=== PATIENT | female | born 1985 | race Caucasian/White ===

== ENCOUNTER → 2024-05-13 | Outpatient (CLI) | payer OTHER ==
--- NOTE | 2024-05-13 09:28 | MR ---
INDICATION: Patient age:Female; 39 years old; Reason for study: N63.22 UNSPECIFIED LUMP IN THE LEFT BREAST, UPPER; [facility]. COMPARISON: None. TECHNIQUE: Multi planar, multi sequence imaging was performed through the brain. The patient was then given 8 cc of Gadavist intravenously and multi planar, T1 fat-saturation images were obtained. FINDINGS: The quach-white junctions, ventricular system, basal cisterns appear unremarkable. Diffusion-weighted imaging shows no evidence of restricted diffusion to suggest acute/subacute infarct. Intracranial art erial flow voids are maintained. Midline structures show no abnormality. There are approximately 3 ti ny bilateral frontal lobe T2/FLAIR hyperintense subcortical white matter 2 mm foci. The susceptibilit y weighted images do not reveal any evidence for micro-hemorrhage. After administration of gadolinium , no abnormal enhancement is seen. The bone marrow signal is within normal limits. The paranasal sinuses and globes are unremarkable. IMPRESSION: 1. No evidence of intracranial mass, acute/subacute infarct, or abnormal enhancement. 2. No definitive evidence for metastatic disease. 3. Few nonspecific white matter foci, likely related to small vessel ischemic disease versus other et iologies such as migraines or demyelination. No enhancement.
== END | disposition home or self-care (01) ==
LOC: RADMRIMAIN 07:04
PROVIDERS: ATTEND Surgery
DX: N63.22 Unspecified lump in the left breast, upper inner quadrant (principal)
CPT/HCPCS: 70553

== ENCOUNTER → 2024-05-14 | Outpatient (CLI) | payer OTHER ==
--- NOTE | 2024-05-14 13:59 | PE ---
EXAMINATION TYPE: PET CT fusion skull to thigh DATE OF EXAM: 05/14/2024 COMPARISON: None Prior PET/CT: None at this location HISTORY: Breast cancer TECHNIQUE: Following the intravenous administration of 11.22 mCi of F-18 FDG, whole body images are performed from the skull base to the midthigh. Images are reviewed on the computer in the coronal, a xial, and sagittal planes. Reconstructed rotating images are created on independent workstation and reviewed on the computer. A localization and attenuation correction CT is performed in conjunction with the PET scan. DLP: 634.77 mGycm SCAN: Initial Blood glucose: 97 mg/dL Average Mediastinum SUV: 2.5 Average Liver SUV: 3.21 FINDINGS: NECK: No suspicious uptake THORAX: There is focal uptake within the medial left breast, may be the patient's primary. No additi onal suspicious uptake within the breasts. No suspicious axillary uptake. No suspicious soft tissue uptake within the thorax. ABDOMEN: No suspicious uptake PELVIS: No suspicious uptake OSSEOUS STRUCTURES: There is some focal uptake within the mid sternum. Image 94, SUV 8.96. Second are a slightly more inferior, image 99, SUV 12.15. LOCALIZATION CT: 2.1 cm nodule left medial breast. Some cortical erosion of sternum noted. COMPARISON: None IMPRESSION: 1. Focal uptake within the medial left breast. 2. Two adjacent nearly contiguous areas of uptake within the sternum suspicious for metastasis. 3. No additional distant metastasis identified.
== END | disposition home or self-care (01) ==
LOC: RADPETMAIN 11:02
PROVIDERS: ATTEND Surgery
DX: C50.919 Malignant neoplasm of unspecified site of unspecified female breast
CPT/HCPCS: 78815

== ENCOUNTER → 2024-05-15 | Outpatient (CLI) | payer OTHER ==
--- NOTE | 2024-05-20 08:33 | BMR ---
EXAM DATE: 05/15/2024 EXAM DESCRIPTION: MRI-Breast Bilat (W/WO Contrast) INDICATION: Recently diagnosed carcinoma presenting for staging COMPARISON: Comparison is made with relevant prior imaging in PACS. CONTRAST: 8.0 cc of Gadavist TECHNIQUE: Multiplanar MRI imaging of both breasts was performed with a dedicated breast coil, before and after intravenous administration of gadolinium contrast, using the standard breast mass protocol. Computer-aided detection was used to aid in interpretation. Study was performed at [facility] with Radiologic interpretation by [facility]. FINDINGS: General breast composition: The breast is heterogeneously dense Background parenchymal enhancement: Mild FINDINGS: Right Breast: Review of the dynamic contrast-enhanced series shows focal non mass enhancement in the upper central breast at posterior depth measuring 1.2 x 1.0 x 1.0 cm (503:542, 701:176). No lymphadenopathy. Left Breast: Review of the dynamic contrast-enhanced series shows irregular enhancing mass in the upper inner breast at mid depth measuring 2.5 x 2.2 x 2.6 cm (504:387, 701:70). There are small surrounding satellite masses all within 1 cm of the main mass, largest measuring 5 mm medial to the index mass (501:381, 701:69). No lymphadenopathy. Miscellaneous findings:Abnormal enhancement involving the sternum. IMPRESSION: Right Breast: BI-RADS Category3- Probably benign 1. Probably benign focal non mass enhancement in the upper central breast at posterior depth, this may represent benign parenchymal enhancement however diagnostic mammogram and targeted ultrasound is recommended for further evaluation. If no mammographic or sonographic target is visible consider MR in 6 months to ensure stability. 2. No MR evidence of lymphadenopathy. Recommendation: Diagnostic mammogram and targeted ultrasound at this time. Left Breast: BI-RADS Category 6- Known biopsy proven malignancy 1. 2.6 cm mass in the upper inner breast at mid depth at the site of known malignancy. There are small surrounding satellite masses all within 1 cm of the index lesion, largest measuring 0.5 cm medial to the index mass. 2. No MR evidence of lymphadenopathy. Recommendation: Surgical oncologic evaluation. Abnormal enhancement involving the sternum concerning for sternal lesion. OVERALL ASSESSMENT -- BI-RADS 6 MTDD
== END | disposition home or self-care (01) ==
LOC: RADMRIMAIN 06:09
PROVIDERS: ATTEND Surgery
DX: C50.212 Malignant neoplasm of upper-inner quadrant of left female breast (principal)
CPT/HCPCS: 77049

== ENCOUNTER → 2024-05-28 | Outpatient (CLI) | payer OTHER ==
--- NOTE | 2024-05-28 10:33 | USB ---
Reason for Exam: MRI abnormality. Patient History: Menarche at age 14. First Full-Term at age 28. Breast cancer, left, age 39. Patient used Hormonal Contraceptives for 10 years. 04/28/2024, US biopsy breast VAD LT - 2 on the Left side. Technique: Method: Whole Breast Handheld. Prior Study Comparison: 04/13/2024 Left Diagnostic Mammogram, Unknown. 04/28/2024 Left Diagnostic Mammogram, Unknown. Findings: The whole breast of the right breast, the axilla of the right breast and the retroareolar of the right breast were scanned. No solid or cystic masses are identified.. Please also see left breast mammographic findings. Overall Assessment: Negative, BI-RAD 1 Electronically signed and approved by: Dane Toro D.O. Radiologis
--- NOTE | 2024-05-29 16:44 | MM ---
Reason for Exam: Hx of breast cancer, conservation therapy. Last screening mammogram was performed less than 1 month ago. Patient History: Menarche at age 14. First Full-Term at age 28. Breast Cancer, Left, age 39. Patient used Hormonal Contraceptives for 10 year. 04/28/2024, US biopsy breast VAD LT - 2 on the Left side. Last menstrual period: 05/22/2024 Prior Study Comparison: 04/13/2024 Left Diagnostic Mammogram, Unknown. 04/28/2024 Left Diagnostic Mammogram, Unknown. 05/15/2024 Bilateral MR breast bilat wo/w con, PH[facility]. Tissue Density: Right: The breasts are heterogeneously dense, which may obscure small masses. Findings: Analyzed By CAD. No suspicious mammographic findings within the right breast. Right breast:No suspicious groups of microcalcifications, spiculated or lobular masses, architectural distortion or other secondary signs of malignancy are mammographically apparent. Overall Assessment: Benign, BI-RAD 2 Management: Surgical Consultation of the left breast. A negative mammogram report should not preclude additional follow up of suspicious palpable abnormalities. Patient should continue monthly self breast exam. A clinical breast exam by your physician is recommended on an annual basis and results should be correlated with mammographic findings. Note on Araceli scores and lifetime risk: 1. A Araceli score greater than 3% is considered moderate risk. If this is the case, consider specialist referral to assess eligibility for a risk reducing agent. 2. If overall lifetime risk for the development of breast cancer is 20% or higher, the patient may qualify for future screening with alternating mammogram and breast MRI. [facility], , 05/29/2024 4:41 PM. Electronically signed and approved by: Dane Toro D.O. Radiologis
== END | disposition home or self-care (01) ==
LOC: RADUSWWP 08:49
PROVIDERS: ATTEND Internal Medicine Hematology & Oncology
DX: C50.212 Malignant neoplasm of upper-inner quadrant of left female breast
CPT/HCPCS: 77061; 77065

== ENCOUNTER → 2024-05-29 | Outpatient (CLI) | payer OTHER ==
[2024-05-29 08:22] VITALS: BP 122/89; PULSE 86; RESP 16; TEMP 98.2
--- NOTE | 2024-05-29 08:57 | P.GSCN ---
History of Present Illness Consult date: 05/29/24 Reason for Consult: breast cancer Requesting physician: Libby Guallpa History of present illness: Lavern is a 39 year old female who is seen in consultation for Zuleika Guallpa regarding left breast cancer. 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 A CT was done which showed a lesion in the left breast. An ultrasound revealed a 1.1 cm lesion as well as a sternal lesion. Biopsy of this area in the breast was done and was (+) for an invasive ductal cancer ER+Pr+Her2- G2. The chest pain in is the center of her sternum. It feels stiff. It is hard to get up. It is a 4 on a scale of 1-10. It is constant, it is worse with movement (stretching, sneezing). She has not had any known trauma to her chest, no infection. NO surgery on her breast in the past. 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 PET scan showed a lesion in the sternum. MRI of the breast showed the initial lesion as well as some satellite lesions measuring up to 5 cm out. No evidence of any adenopathy. She is scheduled for a sternal biopsy next week. She states she is able to feel the lump in her left breast. She did not feel it prior to being told that it was there. Does not feel any lumps or masses under her arms. Caffeine: none nicotine: none chocolate: occasional BCP: she used BCP for 15 years stopped them last week hormones: none Family History: mother: brain cancer of glioblastoma father: lung cancer smoker paternal grandfather: colon cancer Hormonal History: menarche: 14 , breat fed: yes, age at first : 28 periods regular; last period one week ago Surgical History: 2 C-sections Medical History: none Social History: nicotine: none alcohol: none drugs: none Review of Systems - Constitutional Denies fever, Denies weight loss - EENT Eyes: denies blurred vision Ears: deny: decreased hearing, tinnitus Ears, nose, mouth and throat: Denies dysphagia - Breasts bilateral: as per HPI - Cardiovascular Reports chest pain, Denies shortness of breath - Respiratory Denies cough, Denies 7 - Gastrointestinal Reports as per HPI - Genitourinary Genitourinary: Denies dysuria, Denies hematuria Menstruation: Reports period normal - Musculoskeletal Reports as per HPI - Integumentary Denies rash, Denies unusual bruising - Neurological Denies headaches, Denies syncope - Psychiatric Reports as per HPI, Reports anxiety - Endocrine Reports as per HPI - Hematologic/Lymphatic Reports as per HPI - Allergic/Immunologic Reports as per HPI Past Medical History Past Medical History: No Reported History Additional Past Medical History / Comment(s): Obstetric history: First was a primary . This is her second . O+, abs neg, RUb Imm, RPR NR, Hep B neg, abnormal 1hr but normal 3hr GTT, declined quad, normal anatomy US. History of Any Multi-Drug Resistant Organisms: None Reported Past Surgical History: Section Past Anesthesia/Blood Transfusion Reactions: No Reported Reaction Smoking Status: Never smoker Past Alcohol Use History: None Reported Past Drug Use History: None Reported - Past Family History Mother Family Medical History: No Reported History Medications and Allergies Home Medications Medication Instructions Recorded Confirmed Type Vit No.124/Iron/Folic 1 each PO DAILY 02/07/15 05/29/24 History [ Vitamin Tablet] Acetaminophen-Codeine 300-30mg 2 each PO Q4HR PRN #30 tab 02/16/15 05/29/24 Rx [Tylenol w/codeine #3] Ibuprofen [Motrin] 600 mg PO Q6HR PRN #30 tab 02/16/15 05/29/24 Rx Allergies Allergy/AdvReac Type Severity Reaction Status Date / Time No Known Allergies Allergy Verified 05/29/24 08:18 Surgical - Exam Vital Signs Temp Pulse Resp BP Pulse Ox 98.2 F 86 16 122/89 96 05/29/24 08:18 05/29/24 08:18 05/29/24 08:18 05/29/24 08:18 05/29/24 08:18 - General moderate distress - Eyes normal ocular movement - Neck trachea midline - Respiratory normal respiratory effort, clear to auscultation - Cardiovascular Rhythm: regular Heart Sounds: normal: S1, S2 - Abdomen Abdomen: soft, non tender, no guarding, no rigid, no rebound - Integumentary normal turgor - Neurologic no disoriented, no combative - Musculoskeletal normal gait - Psychiatric oriented to time, oriented to person, oriented to place, speech is normal, memory intact Breast Exam: BRA: sports bra large inspection: Bilateral grade 2 ptosis Palpation: Right breast: Multi positional exam no dominant masses or nodules of concern Right axilla: No adenopathy of concern Left breast: Multi positional exam increased fullness upper inner quadrant consistent with the area of the tumor No other dominant masses or nodules of concern Left axilla: No adenopathy of concern Tender to palpation in the upper sternum Results Mammogram, breast MRI, PET scan reviewed with radiologist Dr. Toro lesion of concern noted in the left breast as well as sternal lesion Assessment and Plan Assessment: Impression: 39-year-old female with biopsy-proven left breast invasive ductal carcinoma ER/[place] positive HER2 negative G2 Questionable sternal lesion Family history of cancer Plan: Sternal biopsy Follow-up after sternal biopsy If the sternal biopsy is positive most likely we will receive neoadjuvant therapy, we are aware waiting genetic testing and if the sternal biopsy is negative most likely will proceed to surgery however surgical recommendation will be dependent also on genetic testing. follow up after genetic testing and sternal biopsy follow with medical oncology appointment radiation oncology CC: Libby Guallpa
== END ==
LOC: WWCWWP 07:57
PROVIDERS: ATTEND Surgery
DX: C50.912 Malignant neoplasm of unspecified site of left female breast (principal); R07.2 Precordial pain; Z17.0 Estrogen receptor positive status [ER+]; Z80.1 Family history of malignant neoplasm of trachea, bronchus and lung; Z80.0 Family history of malignant neoplasm of digestive organs

== ENCOUNTER 2024-06-15 10:42 | Day surgery (SDC) | payer OTHER ==
[~2024-06-15 10:42] MED LIST: Pre Op ABX Message 1 EACH MISC MISCELLANE ONE
[2024-06-15] MEDS: LACTATED RINGERS 1,000 ML BAG IV STA (11:16)
[2024-06-15] MEDS: DEXAMETHASONE SOD PHOSPHATE 4 MG/ML 1 ML VIAL IVP STA (11:17)
[2024-06-15] MEDS: ONDANSETRON 4 MG/2 ML VIAL IVP STA (11:17)
[2024-06-15] MEDS: IV FLUID CONTINUATION 1,000 ML IV ONE (11:22)
[2024-06-15] MEDS: HEPARIN SODIUM,PORCINE 100 UNIT/ML 5 ML VIAL IV ONE ×4 (12:54)
[2024-06-15] MEDS: BUPIVACAINE (PF) 0.25% 30 ML VIAL SQ ONE ×3 (12:55)
[2024-06-15] MEDS ORDERED: MIDAZOLAM 2 MG/2 ML VIAL ONE (13:04)
[2024-06-15] MEDS ORDERED: PROPOFOL 10 MG/ML 20 ML VIAL IV ONE (13:04)
[2024-06-15] MEDS ORDERED: ceFAZolin 1 GM/50 ML BAG (PMX) ONE (13:04)
[2024-06-15] MEDS ORDERED: LIDOCAINE 1% INJ 10MG/ML (20 ML MDV) ONE (13:04)
[2024-06-15] MEDS ORDERED: fentaNYL (PF) 50 MCG/ML 2 ML AMP ONE (13:04)
[2024-06-15] MEDS: SODIUM CHLORIDE 0.9% 50 ML with ceFAZolin 2,000 MG IV ONE (13:09)
--- NOTE | 2024-06-15 14:45 | FL ---
EXAMINATION TYPE: FL guided central line placemt DATE OF EXAM: 06/15/2024 2:20 PM COMPARISON: Pre Operative Images if available both CT/MRI or plain film CLINICAL INDICATION: Female, 39 years old with history of PORT PLACEMENT; TECHNIQUE: FL guided central line placemt, multiple fluoroscopic images provided for procedure. Total fluoroscopy time: 12.9 seconds Total submitted images to PACS: 1 DAP: 1.9179 mGym2 Gycm2 uGym2 cGycm2 or equivalent. FINDINGS: Fluoroscopic imaging for Port-A-Cath insertion no evidence for pneumothorax. Multilevel degeneration changes of the spine. IMPRESSION: 1. No evidence for intraoperative complication. 2. Please see the operative/procedural note for further details. [facility], , 06/15/2024 2:43 PM
[2024-06-15 14:58] VITALS: TEMP 97.8
--- NOTE | 2024-06-15 15:02 | FL ---
EXAMINATION TYPE: FL guided central line placemt DATE OF EXAM: 06/15/2024 2:54 PM COMPARISON: Pre Operative Images if available both CT/MRI or plain film CLINICAL INDICATION: Female, 39 years old with history of 2ND TRIP DUE TO MOVEMENT OF PORTACATH; TECHNIQUE: FL guided central line placemt, multiple fluoroscopic images provided for procedure. Total fluoroscopy time: 8 seconds Total submitted images to PACS: 1 DAP: 1.4282 mGym2 Gycm2 uGym2 cGycm2 or equivalent. FINDINGS: Fluoroscopic imaging for Port-A-Cath insertion no evidence for pneumothorax. Multilevel degeneration changes of the spine. IMPRESSION: 1. No evidence for intraoperative complication. 2. Please see the operative/procedural note for further details. [facility], , 06/15/2024 3:00 PM
[2024-06-15 15:48] VITALS: RESP 18
[2024-06-15 16:02] VITALS: BP 112/76; PULSE 82
--- NOTE | 2024-06-15 16:02 | XR ---
EXAMINATION TYPE: XR chest 1V portable DATE OF EXAM: 06/15/2024 3:39 PM CLINICAL INDICATION: Female, 39 years old with history of Mediport placement; [facility] COMPARISON: None TECHNIQUE: XR chest 1V portable Frontal view of the chest. FINDINGS: Lungs/Pleura: There is no evidence of pleural effusion, focal consolidation, or pneumothorax. Pulmonary vascularity: Unremarkable. Heart/mediastinum: Cardiomediastinal silhouette is unremarkable. Musculoskeletal: No acute osseous pathology. Other findings: None Lines/Tubes: Lutwih-x-Kboy projecting over the right hemithorax with distal tip projecting over the superior vena cava. IMPRESSION: 1. No evidence for pneumothorax, Mediport in appropriate position. 2. No acute cardiopulmonary disease/process. [facility], , 06/15/2024 4:00 PM
--- NOTE | 2024-06-15 21:01 | P.OP ---
Date of Procedure: 06/15/24 Preoperative Diagnosis: Breast cancer Postoperative Diagnosis: Breast cancer Procedure(s) Performed: Mediport placement with fluoroscopy Anesthesia: MAC Surgeon: Pema Roy Pathology: none sent Condition: stable Disposition: same day Indications for Procedure: 39-year-old female with recent diagnosis of breast cancer of the left breast. She did consult with oncology with plan for chemotherapy induction. Plan is for Mediport placement for this purpose. Risks, benefits and alternatives were pro vided to the patient including risks of bleeding, pneumothorax and Mediport infection. All questions were answered prior to attending the operating suite. Operative Findings: Appropriate flush and withdrawal from Mediport site Description of Procedure: Patient was brought to the operating suite and placed in supine position on the operating table. Sedation was provided by anesthesia patient was prepped and draped in regular sterile fashion. Local anesthetic was administered and subclavian vein was accessed on first attempt. Guidewire was then placed and location was confirmed under fluoroscopy. Local anesthetic was then administered to create the Mediport pocket. Incision was made and dissection was carried with electrocautery. At this point the dilator sheath was placed over the guidewire and catheter was placed. Catheter was then pulled through into the pocket. This was done under fluoroscopic guidance. Catheter was then attached to the Mediport. On initial flush and withdraw of the Mediport, there was difficulty in pulling back. On exam it was noted that catheter was kinked based on angle of catheter into port. Pocket was expanded slightly to decrease this angle and was noted to be unsuccessful. At this point, decision was made to replace the catheter with a new catheter and this was done over guidewire exchange. This was done under fluoroscopic guidance. New catheter was then inserted to the new Mediport site and no kinking of the catheter was noted. Appropriate flush and withdrawal was performed. The Mediport was sutured to the prepectoralis fascia using a 2-0 Prolene suture. Hep-Lock was placed. The wound was then closed in layers with 3-0 Vicryl and 4-0 Monocryl subcuticular. Sterile dressing was applied. The patient was awakened in the operating suite and taken to postanesthesia care unit in stable condition. Chest x-ray is pending.
== END 2024-06-15 16:15 | disposition home or self-care (01) ==
LOC: OR 10:42
PROVIDERS: ATTEND Surgery
DX: C50.912 Malignant neoplasm of unspecified site of left female breast (principal); F41.9 Anxiety disorder, unspecified
CPT/HCPCS: 81025; 77001; 71045; 36561; C1788; J2250; J1642; J1100; J2405; J0690 ×2; J2003; J3010; J2704; J0665

== ENCOUNTER → 2024-06-16 | Outpatient (CLI) | payer OTHER ==
--- NOTE | 2024-06-17 11:36 | CA ---
Transthoracic Echo Report Name: Lavern العراقي Age: 39 Gender: F : 1985 Exam Date: 06/16/2024 15:32 Exam Location: [facility] Ht (in): 60 Wt (lb): 175 Ordering Physician: Nick Brink MD Attending/Referring Phys: Supervisor [employer] Gauri Mcginnis RDCS Procedure CPT: Indications: Z01.818 Chemo Cardiac Hx: Technical Quality: Fair Contrast 1: Total Dose (mL): Contrast 2: Total Dose (mL): MEASUREMENTS (Male / Female) Normal Values 2D ECHO LV Diastolic Diameter PLAX 4.0 cm 4.2 - 5.9 / 3.9 - 5.3 cm LV Systolic Diameter PLAX 3.0 cm IVS Diastolic Thickness 1.0 cm 0.6 - 1.0 / 0.6 - 0.9 cm LVPW Diastolic Thickness 1.2 cm 0.6 - 1.0 / 0.6 - 0.9 cm LV Relative Wall Thickness 0.6 RV Internal Dim ED PLAX 3.0 cm LA Volume 42.2 cm??? 18 - 58 / 22 - 52 cm??? LA Volume Index 22.5 cm???/m??? 16 - 28 cm???/m??? M-MODE Aortic Root Diameter MM 2.7 cm LA Systolic Diameter MM 3.3 cm LA Ao Ratio MM 1.2 AV Cusp Separation MM 1.6 cm DOPPLER AV Peak Velocity 161.4 cm/s AV Peak Gradient 10.4 mmHg AV Mean Velocity 115.8 cm/s AV Mean Gradient 5.9 mmHg AV Velocity Time Integral 32.6 cm LVOT Peak Velocity 151.8 cm/s LVOT Peak Gradient 9.2 mmHg LVOT Velocity Time Integral 32.2 cm MV Area PHT 7.1 cm??? Mitral E Point Velocity 83.8 cm/s Mitral A Point Velocity 60.1 cm/s Mitral E to A Ratio 1.4 MV Deceleration Time 107.5 ms MV E' Velocity 11.9 cm/s Mitral E to MV E' Ratio 7.0 TR Peak Velocity 193.9 cm/s TR Peak Gradient 15.0 mmHg Right Ventricular Systolic Press 20.0 mmHg FINDINGS Left Ventricle Normal Left ventricular size, wall thickness, systolic function with no obvious regional wall motion abnormalities. Normal Left ventricular diastolic filling pattern. Left ventricular ejection fraction is estimated at 55-60 %. No LV strain was noted. Right Ventricle Normal right ventricular size and function. Right ventricular systolic pressure within normal limits. Right Atrium Normal right atrial size. Left Atrium Normal left atrial size. Mitral Valve Structurally normal mitral valve. Aortic Valve Trileaflet aortic valve. No aortic valve stenosis or regurgitation. Tricuspid Valve Structurally normal tricuspid valve. No tricuspid stenosis. Trace tricuspid regurgitation. Pulmonic Valve Structurally normal pulmonic valve. Pericardium No pericardial effusion. Aorta Normal size aortic root and proximal ascending aorta. CONCLUSIONS Left ventricular ejection fraction 55-60% RVSP 20 Trace tricuspid regurgitation No pericardial effusion Previewed by: Dr. Cameron Cutler DO (Electronically Signed) Final Date: 17 June 2024 11:35
== END ==
LOC: RADECHMAIN 15:23
PROVIDERS: ATTEND Internal Medicine Hematology & Oncology
CPT/HCPCS: 93306

== ENCOUNTER → 2024-08-27 | Outpatient (CLI) | payer OTHER ==
--- NOTE | 2024-08-27 18:59 | PE ---
EXAMINATION TYPE: PET CT fusion skull to thigh DATE OF EXAM: 08/27/2024 CLINICAL INDICATION:Female, 39 years old with history of C50.212 BREAST CANCER; TECHNIQUE: Following the intravenous administration of 10.6 mCi of F-18 FDG, whole body images are performed from the skull base to the midthigh. Images are reviewed on the computer in the coronal, a xial, and sagittal planes. Reconstructed rotating images are created on independent workstation and reviewed on the computer. A non-contrast CT is performed in conjunction with the PET scan. Glucose level 102 mg/dL CT DLP: 655.67 mGycm, Automated exposure control for dose reduction was used. COMPARISON: CT None, PET/CT 05/14/2024, MRI: 05/15/2024, 05/13/2024 FINDINGS: Mediastinal SUV mean is 1.8. Hepatic parenchyma SUV mean is 2.8. SKULL BASE AND NECK: No suspicious radiotracer activity. CHEST, MEDIASTINUM, AND HILAR REGION: Mild decrease in size of medial left breast lesion measuring up to 1.8 cm, previously 2.1 cm. Demonst rates a maximum SUV of 2.8. Previously 10.8. No FDG avid axillary adenopathy. ABDOMEN AND PELVIS: No suspicious radiotracer activity. MUSCULOSKELETAL STRUCTURES: Sclerotic appearance of the midsternum with lack of FDG uptake when compared to surrounding osseous s tructures. Previously demonstrated more lytic appearance. Demonstrates a maximum SUV of 3.7. Previous ly 13.3. Diffuse osseous radiotracer uptake likely related to posttreatment changes. OTHER CT: Right palatine tonsilliths. Right chest wall Mediport catheter distal tip terminating in th e upper IVC. IMPRESSION: Positive response to therapy with decreased size and FDG activity of left breast malignancy. 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 [facility], , 08/27/2024 6:57 PM
== END | disposition home or self-care (01) ==
LOC: RADPETMAIN 11:18
PROVIDERS: ATTEND Surgery
DX: C50.212 Malignant neoplasm of upper-inner quadrant of left female breast (principal)
CPT/HCPCS: 78815; A9552

== ENCOUNTER → 2024-10-30 | Outpatient (CLI) | payer OTHER ==
[2024-10-30 08:44] VITALS: BP 121/83; PULSE 103; RESP 16; TEMP 99.1
--- NOTE | 2024-10-30 09:13 | P.PN ---
Subjective Progress Note Date: 10/30/24 Principal diagnosis: left breast stage IV [id number] ER+ID+Her2-G2 invasive ductal cancer April 2024 History of Present Illness Consult date: 10-30-24 Reason for Consult: breast cancer Requesting physician: Libby Guallpa History of present illness: Lavern is a 39 year old female who ws seen on 05-29-24 in consultation for Zuleika Guallpa regarding left breast cancer. She initially presented to her [employer] with chest pain in the sternum. A CT was done which showed a lesion in the left breast. An ultrasound revealed a 1.1 cm lesion as well as a sternal lesion. Biopsy of this area in the breast was done and was (+) for an invasive ductal cancer ER+Pr+Her2- G2. The chest pain in is the center of her sternum. It feels stiff. It is hard to get up. It is a 4 on a scale of 1-10. It is constant, it is worse with movement (stretching, sneezing). She has not had any known trauma to her chest, no infection. NO surgery on her breast in the past. 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 PET scan showed a lesion in the sternum. MRI of the breast showed the initial lesion as well as some satellite lesions measuring up to 5 cm out. No evidence of any adenopathy. She is scheduled for a sternal biopsy next week. She states she was able to feel the lump in her left breast at the time of diagnosis. She did not feel it prior to being told that it was there. Does not feel any lumps or masses under her arms. Sternal biopsy + metastatic disease Patient recieving AC-T; completed Oct 08 PET/CT on 08-27-24 decreased size of both breast and sternal disease and no new lesions genetic testing (-) note medical oncology 05-21-24 reviewed (consider surgery after neoadjuvant chemotherapy) note radiation oncology 09-02-24 reviewed The patient at this time does not feel any residual tumor in her left breast. She states that the sternal discomfort has improved. Caffeine: none nicotine: none chocolate: occasional BCP: she used BCP for 15 years stopped them last week hormones: none Family History: mother: brain cancer of glioblastoma father: lung cancer smoker paternal grandfather: colon cancer Hormonal History: menarche: 14 , breast fed: yes, age at first : 28 periods regular; last period one week ago Surgical History: 2 C-sections Medical History: none Social History: nicotine: none alcohol: none drugs: none Review of Systems - Constitutional Denies fever, Denies weight loss - EENT Eyes: denies blurred vision Ears: deny: decreased hearing, tinnitus Ears, nose, mouth and throat: Denies dysphagia - Breasts bilateral: as per HPI - Cardiovascular Reports chest pain, Denies shortness of breath - Respiratory Denies cough - Gastrointestinal Reports as per HPI - Genitourinary Genitourinary: Denies dysuria, Denies hematuria Menstruation: Reports period normal - Musculoskeletal Reports as per HPI - Integumentary Denies rash, Denies unusual bruising - Neurological Denies headaches, Denies syncope - Psychiatric Reports as per HPI, Reports anxiety - Endocrine Reports as per HPI - Hematologic/Lymphatic Reports as per HPI - Allergic/Immunologic Reports as per HPI Past Medical History Past Medical History: No Reported History Additional Past Medical History / Comment(s): Obstetric history: First was a primary . This is her second . O+, abs neg, RUb Imm, RPR NR, Hep B neg, abnormal 1hr but normal 3hr GTT, declined quad, normal anatomy US. History of Any Multi-Drug Resistant Organisms: None Reported Past Surgical History: Section Past Anesthesia/Blood Transfusion Reactions: No Reported Reaction Smoking Status: Never smoker Past Alcohol Use History: None Reported Past Drug Use History: None Reported - Past Family History Mother Family Medical History: No Reported History Medications and Allergies Home Medications Medication Instructions Recorded Confirmed Type Vit No.124/Iron/Folic 1 each PO DAILY 02/07/15 05/29/24 History [ Vitamin Tablet] Acetaminophen-Codeine 300-30mg 2 each PO Q4HR PRN #30 tab 02/16/15 05/29/24 Rx [Tylenol w/codeine #3] Ibuprofen [Motrin] 600 mg PO Q6HR PRN #30 tab 02/16/15 05/29/24 Rx Allergies Allergy/AdvReac Type Severity Reaction Status Date / Time No Known Allergies Allergy Verified 05/29/24 08:18 Objective - Vital Signs Vital signs: Vital Signs Temp 99.1 F 10/30/24 08:41 Pulse 103 H 10/30/24 08:41 Resp 16 10/30/24 08:41 BP 121/83 10/30/24 08:41 Pulse Ox 99 10/30/24 08:41 FiO2 Intake & Output 10/29/24 10/30/24 10/30/24 18:59 06:59 18:59 Weight 79.379 kg - Constitutional General appearance: Present: cooperative - EENT Eyes: Present: EOMI ENT: Present: hearing grossly normal - Neck Neck: Present: normal ROM - Respiratory Respiratory: bilateral: CTA - Cardiovascular Rhythm: regular Heart sounds: normal: S1, S2 - Integumentary Integumentary: Present: normal turgor - Musculoskeletal Musculoskeletal: Present: gait normal - Psychiatric Psychiatric: Present: A&O x's 3, appropriate affect, intact judgment & insight - Additional findings Additional findings: Breast Exam: BRA: sports bra large inspection: Bilateral grade 2 ptosis Palpation: Right breast: Multi positional exam no dominant masses or nodules of concern Right axilla: No adenopathy of concern Left breast: Multi positional exam increased fullness upper inner quadrant consistent with the area of the tumor has resolved with the chmeotherapy No other dominant masses or nodules of concern Left axilla: No adenopathy of concern Tender to palpation in the upper sternum has also resolved Assessment and Plan Assessment: Impression: 39-year-old female with biopsy-proven left breast invasive ductal carcinoma ER/ID positive HER2 negative G2 Questionable sternal lesion/ + on biopsy Family history of cancer receiving AC-T with good response Plan: Patient is ready for surgical intervention at this time. At this time she would like to have a left needle localization lumpectomy possible oncoplastic tissue transfer, left sentinel node injection, left sentinel node biopsy, possible left axillary node dissection present case at tumor board She is seen in conjunction with her boyfriend. Risk and benefits of the procedure were discussed with Lavern and her boyfriend. Risk of the lumpectomy include but are not limited to bleeding, infection, reaction to the anesthetic. If the margins were to be positive then further tissue acquisition would be necessary. Additionally there is a possibility that the needle could slip at the time of needle localization and the correct area not be adequately removed. Risk associated with the sentinel node biopsy are discussed. These include bleeding, infection, reaction to the anesthetic. There may be some decrease sensation to the inner arm as well as swelling of the upper extremity. Additionally potential injury to the thoracodorsal or long thoracic nerves resulting in a winged scapula could occur. They understand and wish to proceed. CC: Libby Guallpa
== END ==
LOC: WWCWWP 08:33
PROVIDERS: ATTEND Surgery
DX: C50.912 Malignant neoplasm of unspecified site of left female breast (principal)

== ENCOUNTER → 2024-11-03 | Outpatient (CLI) | payer OTHER ==
[2024-11-03 16:13] LABS: INR 0.97 sec (0.93-1.11); Prothrombin Time 10.9 sec (9.9-11.9)
[2024-11-03 16:50] LABS: Basophils # (A) 0.01 X 10*3/uL (0.00-0.10); Basophils % (A) 0.4 %; Eosinophils # (A) 0.03 X 10*3/uL (0.04-0.35); Eosinophils % (A) 1.1 %; HCT 39.5 % (37.2-46.3); HGB 12.5 g/dL (12.0-15.0); Lymphocytes # (A) 0.76 X 10*3/uL (0.90-5.00); Lymphocytes % (A) 27.3 %; MCH 32.6 pg (27.0-32.0); MCHC 31.6 g/dL (32.0-37.0); MCV 102.9 FL (80.0-97.0); Monocytes # (A) 0.26 X 10*3/uL (0.20-1.00); Monocytes % (A) 9.4 %; NRBC Per 100 WBC 0 X 10*3/uL (0.00-0.01); Neutrophils # (A) 1.71 X 10*3/uL (1.80-7.70); Neutrophils % (A) 61.4 %; Platelet Count 290 X 10*3/uL (140-440); RBC 3.84 X 10*6/uL (4.10-5.20); RDW 12.6 % (11.5-14.5); WBC 2.78 X 10*3/uL (4.50-10.00)
[2024-11-03 17:03] LABS: ALT 43 U/L (8-44); AST 32 U/L (13-35); Albumin 4.6 g/dL (3.8-4.9); Albumin/Globulin Ratio 1.59 Ratio (1.60-3.17); Alkaline Phosphatase 128 U/L (41-126); BUN/Creat Ratio 17.29 Ratio (12.00-20.00); Blood Urea Nitrogen 12.1 mg/dL (9.0-27.0); Calcium 9.8 mg/dL (8.7-10.3); Carbon Dioxide 25.6 mmol/L (21.6-31.8); Chloride 104 mmol/L (96-109); Globulin 2.9 g/dL (1.6-3.3); Glucose 105 mg/dL (70-110); Potassium 4.1 mmol/L (3.5-5.5); Sodium 140 mmol/L (135-145); Total Bilirubin <0.2 mg/dL (0.3-1.2); Total Protein 7.5 g/dL (6.2-8.2)
== END | disposition home or self-care (01) ==
LOC: LABWHC1 09:32
PROVIDERS: ATTEND Family Medicine
DX: Z01.818 Encounter for other preprocedural examination (principal); C50.312 Malignant neoplasm of lower-inner quadrant of left female breast
CPT/HCPCS: 36415; 80053; 85025; 85610

== ENCOUNTER 2024-11-17 11:25 | Day surgery (SDC) | payer OTHER ==
[~2024-11-17 11:25] MED LIST changes: +METHYLENE BLUE 50 MG/10 ML AMPUL MISCELLANE ONE; +MIDAZOLAM 2 MG/2 ML VIAL IV PRN; -Pre Op ABX Message 1 EACH MISC MISCELLANE ONE
[2024-11-17] MEDS: IV FLUID CONTINUATION 1,000 ML IV ONE (12:13)
[2024-11-17] MEDS: LACTATED RINGERS 1,000 ML IV SCH (12:29)
[2024-11-17] MEDS: ACETAMINOPHEN TAB 500 MG TAB PO PRN (12:38)
[2024-11-17] MEDS: ALPRAZolam 0.5 MG TAB PO STA (12:39)
[2024-11-17] MEDS: ONDANSETRON 4 MG/2 ML VIAL IVP ONE (12:40)
[2024-11-17] MEDS: DEXAMETHASONE SOD PHOSPHATE 4 MG/ML 1 ML VIAL IV ONE (12:40)
--- NOTE | 2024-11-17 13:19 | P.NAPBC ---
NAPBC Queries - NAPBC Queries Was patient's case review presented at [facility] tumor board? If no, comment.: Yes Was patient's pathology reviewed at [facility]? If no, comment.: Yes Was breast conservation surgery offered? If no, comment.: Yes Was sentinel node biopsy offered? If no, comment.: Yes Was diagnosis confirmed by percutaneous core biopsy? If no, comment.: Yes Is patient mastectomy patient?: No Was a preop referral to reconstructive surgeon offered?: No Clinical Stage: stage IV invasive ductal cancer left breast
[2024-11-17] MEDS: LIDOCAINE 1% INJ 10MG/ML (20 ML MDV) SQ ONE ×3 (13:22→16:25)
[2024-11-17] MEDS: SODIUM BICARB 8.4% 50 ML VIAL (1 MEQ/ML) MISCELLANE ONE (13:22)
[2024-11-17] MEDS: METHYLENE BLUE 50 MG/10 ML AMPUL MISCELLANE ONE (13:30)
[2024-11-17] MEDS: HEPARIN SODIUM,PORCINE 5,000 UNIT/ML 1 ML VIAL SQ PRN (14:23)
[2024-11-17] MEDS ORDERED: fentaNYL (PF) 50 MCG/ML 2 ML AMP ONE (14:27)
[2024-11-17] MEDS ORDERED: SUCCINYLCHOLINE CHLORIDE 200 MG/10 ML VIAL IV ONE (14:27)
[2024-11-17] MEDS ORDERED: LIDOCAINE 1% INJ 10MG/ML (20 ML MDV) ONE (14:27)
[2024-11-17] MEDS ORDERED: PROPOFOL 10 MG/ML 20 ML VIAL IV ONE (14:27)
[2024-11-17] MEDS ORDERED: MIDAZOLAM 2 MG/2 ML VIAL ONE (14:27)
[2024-11-17] MEDS ORDERED: KETAMINE HCL IN 0.9 % NACL 50 MG/5 ML SYRINGE ONE (14:27)
[2024-11-17] MEDS ORDERED: PHENYLEPHRINE 10 MG/ML VIAL ONE (14:27)
[2024-11-17] MEDS ORDERED: ePHEDrine 50 MG/ML 1 ML VIAL ONE (14:27)
[2024-11-17] MEDS ORDERED: KETOROLAC 15 MG/ML 1 ML VIAL ONE (14:27)
[2024-11-17] MEDS: METHYLENE BLUE 50 MG/10 ML AMPUL INJ ONE (14:50)
--- NOTE | 2024-11-17 15:16 | NM ---
EXAMINATION TYPE: NM sentinel node injection DATE OF EXAM: 11/17/2024 COMPARISON: NONE CLINICAL INDICATION: Female, 39 years old with history of C50.212 MALIGNANT NEOPLASM OF UPPER-INNER Q UADRANT; left breast TECHNIQUE AND FINDINGS: The procedure of sentinel lymph node injection was explained to the patient. The benefits, alternatives, and risks were discussed. An informed consent was then obtained. Overlying skin is cleaned with sterile alcohol. Following this, 476 uCi Tc99m Tilmanocept was inject ed in the upper outer aspect of the left nipple intradermally. The patient tolerated the procedure well without any immediate complication. The patient was kept in the radiology department for short stay after the procedure and then taken to surgery for surgical p rocedure what is presumed intraoperative gamma probe will be used for sentinel lymph node detection. IMPRESSION: Left breast radiotracer injection for sentinel node localization as above. [facility], , 11/17/2024 3:13 PM
--- NOTE | 2024-11-17 16:03 | MM ---
EXAM: MG diagnostic mammo LT wo CAD, MG surgical specimen LT, MG pre op needle loc LT, US breast loca lization LT DATE OF EXAM: 11/17/2024 COMPARISON: 04/13/2024 Left Diagnostic Mammogram, Unknown. 04/28/2024 Left Diagnostic Mammogram, Unkno wn. 05/28/2024 Right MG 3D diag mammo w/cad RT, [facility]. CLINICAL INDICATION: Female, 39 years old with history of C50.212 malignant neoplasm, Menarche at age 14. First Full-Term at age 28. Breast cancer, left, age 39. Patient used Hormonal Contrace ptives for 10 years. 04/28/2024, US biopsy breast VAD LT - 2 on the Left side. Left-sided breast can cer 10:00 position. DESCRIPTION: The procedure of needle localization with wire placement and than surgical excision was explained to the patient. Benefits, alternatives, and risks were discussed. An informed consent was then obtaine d. Ultrasound guidance was chosen. The overlying skin was prepped and draped in usual sterile fashion. Lidocaine buffered with bicarbonate was used as anesthetic into the skin and subcutaneous tissue up t o the level of area of concern. A 7 cm needle was used. It was placed via ultrasound guidance. At t his point ordering surgeon injected diluted methylene blue. Then a wire was placed with needle remain ing stable. Diagnostic mammogram after wire placement showed the wire went through the lesion and int o significant posterior tissue. It was chosen to do a mammogram assisted needle localization with wir e placement. Lidocaine with bicarbonate was used as anesthetic. The lesion was placed medial to later al approach. Subsequent 90 degrees mammogram show the needle to be in satisfactory position relative to the targeted area. At this point, wire was placed and the needle was withdrawn. The second wire was in excellent position and fixed to patient's skin. Images were reviewed and marked for surgeon. The patient tolerated the procedure well without any immediate complication. The patient was kept in the radiology department for short stay after the procedure and then taken to surgery for surgical e xcision. Targeted clip and both wires are identified in specimen mammogram. The patient was kept in hospital for short stay after the procedure and then discharged home in stable condition. Impression: Successful, uncomplicated needle localization with wire placement and surgical excision of targeted c lip in the left breast, full pathology results to follow. [facility], , 11/17/2024 3:49 PM
[2024-11-17] MEDS: LACTATED RINGERS 1,000 ML IV ONE (16:15)
--- NOTE | 2024-11-17 16:16 | P.BCAON ---
Date of Procedure: 11/17/24 Preoperative Diagnosis: Left breast invasive ductal carcinoma Postoperative Diagnosis: Same Procedure(s) Performed: Needle localization lumpectomy, sentinel node mapping, sentinel node biopsy, oncoplastic tissue transfer 41 cm Anesthesia: KYLEA Surgeon: Ami Martinez Estimated Blood Loss (ml): 20 IV fluids (ml): 900 Pathology: other ([place] node biopsy, breast tissue) Condition: stable Disposition: same day Indications for Procedure: Left breast invasive ductal carcinoma status post neoadjuvant therapy Operative Findings: Dense breast tissue Description of Procedure: The patient was first seen in the radiology department for needle localization of the area of concern was performed as well as injection of radiotracer. She was brought to the operative suite. Following induction of anesthesia the neoprobe was used to interrogate the axilla. Minimal radioactivity was identified in 10 cc of half percent methylene blue were injected into the periareolar area. This area was massaged. Following this the left breast and axilla were prepped and draped in a sterile fashion. Using the neoprobe for direction an incision was made in the left axilla. This was carried down to a radioactive lymph node which was also blue. The 10-second count on the lymph node was 6812. 10-second background count was 53. The patient had no other radioactive or blue lymph nodes identified of concern. There was no palpable adenopathy of concern. The wound was well irrigated. The deep tissues were closed using 3-0 Vicryl suture. The subcutaneous tissue was closed using 3-0 Vicryl suture. The skin was closed using a 4-0 Monocryl subcuticular suture. At this point the area of the breast was approached. An incision was made and carried down to the shaft of 2 needle localizing wires. The tissue was excised widely around these wires. Posteriorly dissection was onto the pectoralis muscle. Anteriorly dissection was in the subcutaneous tissue. Wide excision was performed the specimen was 5 x 3 cm. The specimen was painted for orientation. Radiograph of the specimen revealed the 2 wires and the clip. After reassured that hemostasis was attained a superior pillar 6 x 3 cm was dev eloped in the subcutaneous plane An inferior pillar 4 x 2 cm was identified in the subcutaneous plane. Titanium clips were placed in the cavity. Surgicel in powder form was placed. The 2 pillars were brought together and secured using 3-0 Vicryl suture. 3-0 Vicryl suture was used to close the subcutaneous tissue. Subcuticular closure was performed using 4-0 Monocryl. The patient tolerated the procedure in stable condition. All instrument and sponge counts were correct at the end of the case. 20 cc of 1% lidocaine were injected into the incision at the end of the case. - Sentinal Node Biopsy Operation performed with curative intent: Yes Tracer(s) used in upfront surgery (non-neoadjuvant): N/A Tracer(s) used in the neoadjuvant setting: dye, radioactive tracer All nodes present at end of dye-filled channel removed: Yes All significantly radioactive nodes were removed: Yes All palpably suspicious nodes were removed: Yes Clipped positive nodes identified and removed: N/A
[2024-11-17 16:41] VITALS: TEMP 97.2
[2024-11-17] MEDS: HYDROmorphone 0.5 MG/0.5 ML SYRINGE IVP PRN (17:05)
[2024-11-17 17:42] VITALS: RESP 16
[2024-11-17 18:23] VITALS: PULSE 107
[2024-11-17 18:35] VITALS: BP 112/78
== END 2024-11-17 18:35 | disposition home or self-care (01) ==
LOC: OR 11:25
PROVIDERS: ATTEND Surgery
DX: C50.212 Malignant neoplasm of upper-inner quadrant of left female breast (principal); C77.3 Secondary and unspecified malignant neoplasm of axilla and upper limb lymph nodes; Z17.0 Estrogen receptor positive status [ER+]; Z17.21 Progesterone receptor positive status; Z17.32 Human epidermal growth factor receptor 2 negative status; F41.9 Anxiety disorder, unspecified; F32.A Depression, unspecified; Z79.899 Other long term (current) drug therapy
CPT/HCPCS: 19301; 38525; 19281; 19285; 38792; 81025; 88342; 88307; 88341; 77065; 76098; C1819 ×2; A9520; J2250; J0330; J1644; J1100; J0690; J2405; J2003; J3010; J1885; J2704; Q9968; J1171; J2371

== ENCOUNTER → 2024-11-26 | Outpatient (CLI) | payer OTHER ==
[2024-11-26 13:19] VITALS: BP 120/82; PULSE 85; RESP 17; TEMP 97.8
--- NOTE | 2024-11-26 13:43 | P.BCPO ---
Progress Note - Text Progress Note Date: 11/26/24 Lavern is a 39 year old female status post left breast lumpectomy and SNB. on 11-17-24. Her pathology showed 2 sites of IDC with close medial margin. She had DCIS (-) margins. Her sentinal node was (+) for micrometastatic disease. Lungs: Clear Heart: Regular rate and rhythm Incision: Swelling with some ecchymosis suspect a seroma is present in the breast, axillary incision is clean and dry Impression: Patient doing well postoperatively She has met with radiation oncology and has recommended radiation therapy Will follow-up with medical oncology Plan: Attempted aspiration of possible seroma left breast Follow-up medical oncology Follow-up radiation oncology follow up next week Following informed consent the area of concern in the left breast is prepped using alcohol. An 18-gauge needle on a 20 cc syringe was inserted into the area of concern. 25 Cc of what appeared to be old hematoma was aspirated. The swelling in the breast was decreased.
== END ==
LOC: WWCWWP 12:06
PROVIDERS: ATTEND Surgery
DX: D05.10 Intraductal carcinoma in situ of unspecified breast (principal); Z98.890 Other specified postprocedural states

== ENCOUNTER → 2024-12-03 | Outpatient (CLI) | payer OTHER ==
[2024-12-03 12:15] VITALS: BP 128/92; PULSE 106; RESP 17; TEMP 98.3
--- NOTE | 2024-12-03 12:33 | P.PN ---
Subjective Progress Note Date: 12/03/24 12-03-24 Lavern is a 39 year old female status post left breast lumpectomy and SNB. on 11-17-24. Her pathology showed 2 sites of IDC with close medial margin. She had DCIS (-) margins. Her sentinal node was (+) for micrometastatic disease. Lungs: Clear Heart: Regular rate and rhythm Incision: Swelling with some ecchymosis suspect a seroma/hematoma is present in the breast, axillary incision is clean and dry Impression: Patient doing well postoperatively She has met with radiation oncology and has recommended radiation therapy Will follow-up with medical oncology Plan: Attempted aspiration of possible seroma left breast last week only 25 cc of old hematoma aspirated Follow-up medical oncology Follow-up radiation oncology follow up next week/ ultrasound of left breast evaluate for hematoma Additional CC's: Libby Guallpa Objective - Vital Signs Vital signs: Vital Signs Temp 98.3 F 12/03/24 12:12 Pulse 106 H 12/03/24 12:12 Resp 17 12/03/24 12:12 BP 128/92 12/03/24 12:12 Pulse Ox 99 12/03/24 12:12 FiO2 Intake & Output 12/02/24 12/03/24 12/03/24 18:59 06:59 18:59 Weight 83.915 kg
== END ==
LOC: WWCWWP 11:46
PROVIDERS: ATTEND Surgery
DX: D05.10 Intraductal carcinoma in situ of unspecified breast (principal); Z98.890 Other specified postprocedural states

== ENCOUNTER → 2024-12-04 | Outpatient (CLI) | payer OTHER ==
--- NOTE | 2024-12-04 07:59 | USB ---
Reason for Exam: Clinical finding. Patient History: Menarche at age 14. First Full-Term at age 28. Breast cancer, left, age 39. Patient used Hormonal Contraceptives for 10 years. 11/17/2024, Lumpectomy on the Left side. 11/17/2024, MG pre op needle loc LT on the Left side. 11/17/2024, Malignant US breast localization LT on the left side. 04/28/2024, US biopsy breast VAD LT - 2 on the Left side. Prior Study Comparison: 04/28/2024 Left Diagnostic Mammogram, Unknown. 05/15/2024 Bilateral MR breast bilat wo/w con, [facility]. 05/28/2024 Right MG 3D diag mammo w/cad RT, [facility]. 05/28/2024 Right US breast RT, [facility]. 11/17/2024 Left MG diagnostic mammo LT wo CAD., [facility]. Findings: The whole breast of the left breast, the axilla of the left breast and the retroareolar of the left breast were scanned. A complete US of all four quadrants of the breast and retro-areolar region were reviewed. No solid or cystic masses are identified..A complete US of all four quadrants of the breast and retro-areolar region were reviewed. No solid or cystic masses are identified..There is a large difficult to measure seroma throughout the left breast including the left axilla. Apparently the patient is scheduled for surgical drainage. An infected collection is not excluded. Overall Assessment: Probably benign, BI-RAD 3 Management: Diagnostic Breast Ultrasound of the left breast in 1 month. A clinical breast exam by your physician is recommended on an annual basis and results should be correlated with mammographic findings. This exam should not preclude additional follow-up of suspicious palpable abnormalities. Results were given to the patient verbally at the time of exam. [facility], , 12/04/2024 7:57 AM. Electronically signed and approved by: Richard Hollins M.D. Radiologis
== END | disposition home or self-care (01) ==
LOC: RADUSWWP 07:16
PROVIDERS: ATTEND Surgery
DX: Z85.3 Personal history of malignant neoplasm of breast (principal); Z92.0 Personal history of contraception

== ENCOUNTER → 2024-12-08 | Day surgery (SDC) | payer OTHER ==
[2024-12-04 10:11] VITALS: BMI 36.1
[~2024-12-08] MED LIST changes: +HYDROmorphone 0.5 MG/0.5 ML SYRINGE IVP PRN; -METHYLENE BLUE 50 MG/10 ML AMPUL MISCELLANE ONE; -MIDAZOLAM 2 MG/2 ML VIAL IV PRN; +MIDAZOLAM 2 MG/2 ML VIAL ONE; +PROPOFOL 10 MG/ML 20 ML VIAL IV ONE; +Pre Op ABX Message 1 EACH MISC MISCELLANE ONE; +fentaNYL (PF) 50 MCG/ML 2 ML AMP ONE
[2024-12-08] MEDS: IV FLUID CONTINUATION 1,000 ML IV ONE ×2 (09:33→09:49)
[2024-12-08] MEDS: LACTATED RINGERS 1,000 ML IV SCH (09:34)
[2024-12-08] MEDS: HEPARIN SODIUM,PORCINE 5,000 UNIT/ML 1 ML VIAL SQ PRN (09:38)
[2024-12-08] MEDS: ACETAMINOPHEN TAB 500 MG TAB PO PRN (09:38)
[2024-12-08] MEDS: ONDANSETRON 4 MG/2 ML VIAL IVP ONE (09:39)
[2024-12-08] MEDS: DEXAMETHASONE SOD PHOSPHATE 4 MG/ML 1 ML VIAL IV ONE (09:39)
[2024-12-08] MEDS: SODIUM CHLORIDE 0.9% 50 ML with ceFAZolin 2 GM IV ONE (09:51)
[2024-12-08] MEDS: LIDOCAINE 1% (10MG/ML) FOR IV START INTRADERMA STA (09:51)
--- NOTE | 2024-12-08 10:52 | P.BCAON ---
Date of Procedure: 12/08/24 Preoperative Diagnosis: Hematoma left breast Postoperative Diagnosis: Same Procedure(s) Performed: Evacuation hematoma Anesthesia: JEAN MARIE Surgeon: Ami Martinez Estimated Blood Loss (ml): 10 IV fluids (ml): 500 Pathology: none sent Condition: stable Disposition: same day Indications for Procedure: Hematoma left breast Operative Findings: Hematoma Description of Procedure: The patient was brought to the operative suite and following induction of anesthesia the left breast was prepped and draped in a sterile fashion. The prior incision was opened and upon opening it a hematoma extruded from the opening. Approximately 500 cc of hematoma was evacuated. This was seroma fluid combined with hematoma. The wound was well irrigated. There was oozing from which was generalized from the surface and this was cauterized. Surgicel in powder form was placed. Prior to irrigation cultures were obtained. The wound was then packed using a moist Kerlix. The remainder of the incision was reinforced using 2-0 nylon suture. The patient tolerated the procedure in stable condition. All instrument and sponge counts were correct at the end of the case.
[2024-12-08 11:21] VITALS: TEMP 97.3
[2024-12-08 12:00] VITALS: RESP 16
[2024-12-08 12:38] VITALS: BP 117/84; PULSE 90
== END | disposition home health service (06) ==
LOC: OR 08:37
PROVIDERS: ATTEND Surgery
DX: N64.89 Other specified disorders of breast (principal); Z79.899 Other long term (current) drug therapy; Z98.890 Other specified postprocedural states
CPT/HCPCS: 81025; 87070; 87205; 87075; 10140; J2250; J1644; J1100; J0690; J2405; J3010; J2704

== ENCOUNTER → 2024-12-08 | Outpatient (CLI) | payer OTHER ==
[2024-12-08 08:03] VITALS: BP 128/87; PULSE 87; RESP 17; TEMP 98.3
--- NOTE | 2024-12-08 08:20 | P.PN ---
Subjective Progress Note Date: 12/08/24 Principal diagnosis: hematoma Subjective Progress Note Date: 12-08-24 Principal diagnosis: left breast stage IV [id number] ER+DC+Her2-G2 invasive ductal cancer April 2024 History of Present Illness Consult date: 10-30-24 Reason for Consult: breast cancer Requesting physician: Libby Guallpa History of present illness: Lavern is a 39 year old female who ws seen on 05-29-24 in consultation for Zuleika Guallpa regarding left breast cancer. 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 A CT was done which showed a lesion in the left breast. An ultrasound revealed a 1.1 cm lesion as well as a sternal lesion. Biopsy of this area in the breast was done and was (+) for an invasive ductal cancer ER+Pr+Her2- G2. The chest pain in is the center of her sternum. It feels stiff. It is hard to get up. It is a 4 on a scale of 1-10. It is constant, it is worse with movement (stretching, sneezing). She has not had any known trauma to her chest, no infection. NO surgery on her breast in the past. 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 PET scan showed a lesion in the sternum. MRI of the breast showed the initial lesion as well as some satellite lesions measuring up to 5 cm out. No evidence of any adenopathy. She is scheduled for a sternal biopsy next week. She states she was able to feel the lump in her left breast at the time of diagnosis. She did not feel it prior to being told that it was there. Does not feel any lumps or masses under her arms. Sternal biopsy + metastatic disease Patient recieving AC-T; completed Oct 08 PET/CT on 08-27-24 decreased size of both breast and sternal disease and no new lesions genetic testing (-) note medical oncology 05-21-24 reviewed (consider surgery after neoadjuvant chemotherapy) note radiation oncology 09-02-24 reviewed The patient at this time does not feel any residual tumor in her left breast. She states that the sternal discomfort has improved. Patient's case was presented at tumor board on 11 03 24. Recommendation was for a lumpectomy and sentinel node biopsy. This was performed on 11-17-2024. Post procedure the patient has done well but developed some swelling of the breast. Ultrasound reveals fluid in possible hematoma. Caffeine: none nicotine: none chocolate: occasional BCP: she used BCP for 15 years stopped them last week hormones: none Family History: mother: brain cancer of glioblastoma father: lung cancer smoker paternal grandfather: colon cancer Hormonal History: menarche: 14 , breast fed: yes, age at first : 28 periods regular; last period one week ago Surgical History: 2 C-sections Medical History: none Social History: nicotine: none alcohol: none drugs: none Review of Systems - Constitutional Denies fever, Denies weight loss - EENT Eyes: denies blurred vision Ears: deny: decreased hearing, tinnitus Ears, nose, mouth and throat: Denies dysphagia - Breasts bilateral: as per HPI - Cardiovascular Reports chest pain, Denies shortness of breath - Respiratory Denies cough - Gastrointestinal Reports as per HPI - Genitourinary Genitourinary: Denies dysuria, Denies hematuria Menstruation: Reports period normal - Musculoskeletal Reports as per HPI - Integumentary Denies rash, Denies unusual bruising - Neurological Denies headaches, Denies syncope - Psychiatric Reports as per HPI, Reports anxiety - Endocrine Reports as per HPI - Hematologic/Lymphatic Reports as per HPI - Allergic/Immunologic Reports as per HPI Past Medical History Past Medical History: No Reported History Additional Past Medical History / Comment(s): Obstetric history: First was a primary . This is her second . O+, abs neg, RUb Imm, RPR NR, Hep B neg, abnormal 1hr but normal 3hr GTT, declined quad, normal anatomy US. History of Any Multi-Drug Resistant Organisms: None Reported Past Surgical History: Section Past Anesthesia/Blood Transfusion Reactions: No Reported Reaction Smoking Status: Never smoker Past Alcohol Use History: None Reported Past Drug Use History: None Reported - Past Family History Mother Family Medical History: No Reported History Medications and Allergies Home Medications Medication Instructions Recorded Confirmed Type Vit No.124/Iron/Folic 1 each PO DAILY 02/07/15 05/29/24 History [ Vitamin Tablet] Acetaminophen-Codeine 300-30mg 2 each PO Q4HR PRN #30 tab 02/16/15 05/29/24 Rx [Tylenol w/codeine #3] Ibuprofen [Motrin] 600 mg PO Q6HR PRN #30 tab 02/16/15 05/29/24 Rx Allergies Allergy/AdvReac Type Severity Reaction Status Date / Time No Known Allergies Allergy Verified 05/29/24 08:18 Objective - Vital Signs Vital signs: Vital Signs Temp 98.3 F 12/08/24 08:00 Pulse 87 12/08/24 08:00 Resp 17 12/08/24 08:00 BP 128/87 12/08/24 08:00 Pulse Ox 99 12/08/24 08:00 FiO2 Intake & Output 12/07/24 12/08/24 12/08/24 18:59 06:59 18:59 Weight 83.915 kg - Constitutional General appearance: Present: cooperative - EENT Eyes: Present: EOMI ENT: Present: hearing grossly normal - Neck Neck: Present: normal ROM - Respiratory Respiratory: bilateral: CTA - Cardiovascular Heart sounds: normal: S1, S2 - Integumentary Integumentary Comment(s): Breast Exam: BRA: sports bra large inspection: Bilateral grade 2 ptosis/ post surgical swelling left breast Palpation: Right breast: no dominant masses or nodules of concern Right axilla: No adenopathy of concern Left breast: breast is swollen and consistent with complicated hematoma and seroma No other dominant masses or nodules of concern Left axilla: No adenopathy of concern Tender to palpation in the upper sternum has also resolved Assessment and Plan Assessment: Impression: 39-year-old female with biopsy-proven left breast invasive ductal carcinoma ER/DC positive HER2 negative G2 Questionable sternal lesion/ + on biopsy hematoma/seroma status post left breast lumpectomy Plan: evacuation of complesx seroma/hematoma left breast risk and benefits of procedure explained to patient and she wishes to proceed
== END ==
LOC: WWCWWP 07:41
PROVIDERS: ATTEND Surgery
DX: C50.112 Malignant neoplasm of central portion of left female breast (principal); Z17.21 Progesterone receptor positive status; Z17.0 Estrogen receptor positive status [ER+]; Z17.32 Human epidermal growth factor receptor 2 negative status; Z98.890 Other specified postprocedural states

== ENCOUNTER → 2024-12-10 | Outpatient (CLI) | payer OTHER ==
--- NOTE | 2024-12-10 10:30 | P.BCPO ---
Progress Note - Text Progress Note Date: 12/10/24 12-10-24 Lavern is a 39 year old female status post left breast lumpectomy and SNB. on 11-17-24. Her pathology showed 2 sites of IDC with close medial margin. She had DCIS (-) margins. Her sentinal node was (+) for micrometastatic disease. She had evacuation of a hematoma of hte lumpectomy site of the left bresat on 12-08-24. Lungs: Clear Heart: Regular rate and rhythm Incision: Impression: Patient doing well postoperatively She has met with radiation oncology and has recommended radiation therapy Will follow-up with medical oncology Plan: Health care to see patient packing to be changed daily Follow-up medical oncology Follow-up radiation oncology follow up next week, she will follow-up sooner any questions or concerns She was seen here with her boyfriend who was also taught how to do the packing changes. The packing was changed. Moist Kerlix was removed and new moist Kerlix was placed. The wound is clean and dry. The packing will be moist Kerlix which should be changed daily. The wound should be loosely packed, with an ABD pad over this. She can hold this in place using her bra. Additional CC's: Libby Guallpa
[2024-12-10 11:21] VITALS: BP 117/88; PULSE 80; RESP 16; TEMP 97.9
== END ==
LOC: WWCWWP 09:44
PROVIDERS: ATTEND Surgery
DX: Z53.9 Procedure and treatment not carried out, unspecified reason (principal)

== ENCOUNTER → 2024-12-17 | Outpatient (CLI) | payer OTHER ==
[2024-12-17 09:35] VITALS: BP 126/88; PULSE 107; RESP 16; TEMP 98.7
--- NOTE | 2024-12-17 09:57 | P.PN ---
Subjective Progress Note Date: 12/17/24 12-17-24 Lavern is a 39 year old female status post left breast lumpectomy and SNB. on 11-17-24. Her pathology showed 2 sites of IDC with close medial margin. She had DCIS (-) margins. Her sentinal node was (+) for micrometastatic disease. She had evacuation of a hematoma of the lumpectomy site of the left breast on 12-08-24. She was seen on 12-10-24 and doing well, packing was changed on her last visit. She is seen today Lungs: Clear Heart: Regular rate and rhythm Incision: clean, packing changed This is an open wound, it is 3 x 4 x 2 cm in size Impression: Patient doing well postoperatively She has met with radiation oncology and has recommended radiation therapy Will follow-up with medical oncology Plan: continue present care Follow-up medical oncology Follow-up radiation oncology follow up two weeks, she will follow-up sooner any questions or concerns The packing will be moist Kerlix which should be changed daily. The wound should be loosely packed, with an ABD pad over this. She can hold this in place using her bra. Additional CC's: Libby Guallpa Objective - Vital Signs Vital signs: Vital Signs Temp 98.7 F 12/17/24 09:32 Pulse 107 H 12/17/24 09:32 Resp 16 12/17/24 09:32 BP 126/88 12/17/24 09:32 Pulse Ox 97 12/17/24 09:32 FiO2 Intake & Output 12/16/24 12/17/24 12/17/24 18:59 06:59 18:59 Weight 83.915 kg
== END ==
LOC: WWCWWP 09:14
PROVIDERS: ATTEND Surgery
DX: Z98.890 Other specified postprocedural states (principal)

== ENCOUNTER → 2025-01-01 | Outpatient (CLI) | payer OTHER ==
[2025-01-01 12:54] VITALS: BP 120/77; PULSE 94; RESP 17; TEMP 98.2
--- NOTE | 2025-01-01 13:08 | P.PN ---
Subjective Progress Note Date: 01/01/25 01-01-25 Lavern is a 39 year old female status post left breast lumpectomy and SNB. on 11-17-24. Her pathology showed 2 sites of IDC with close medial margin. She had DCIS (-) margins. Her sentinal node was (+) for micrometastatic disease. She had evacuation of a hematoma of the lumpectomy site of the left breast on 12-08-24. She was seen on 12-10-24 and doing well, packing was changed on her last visit. She is seen today Lungs: Clear Heart: Regular rate and rhythm Incision: clean, packing changed; 2 by 1.2 by 0.8 cm This is an open wound, it is on 12-17-24 3 x 4 x 2 cm in size Impression: Patient doing well postoperatively She has met with radiation oncology and has recommended radiation therapy Will follow-up with medical oncology Plan: continue present care Follow-up medical oncology Follow-up radiation oncology follow up four weeks, she will follow-up sooner any questions or concerns The packing was moist Kerlix which sharon not be changed to dry packing, which should be changed daily. The wound should be loosely packed, with an ABD pad over this. She can hold this in place using her bra. Objective - Vital Signs Vital signs: Vital Signs Temp 98.2 F 01/01/25 12:52 Pulse 94 01/01/25 12:52 Resp 17 01/01/25 12:52 BP 120/77 01/01/25 12:52 Pulse Ox 98 01/01/25 12:52 FiO2 Intake & Output 12/31/24 01/01/25 01/01/25 18:59 06:59 18:59 Weight 83.915 kg
== END ==
LOC: WWCWWP 12:30
PROVIDERS: ATTEND Surgery
DX: C50.919 Malignant neoplasm of unspecified site of unspecified female breast (principal); Z98.890 Other specified postprocedural states

== ENCOUNTER → 2025-03-18 | Outpatient (CLI) | payer OTHER ==
--- NOTE | 2025-03-18 08:54 | P.PN ---
Subjective 03-18-25 Lavern is a 39 year old female status post left breast lumpectomy and SNB. on 11-17-24. Her pathology showed 2 sites of IDC with close medial margin. She had DCIS (-) margins. Her sentinal node was (+) for micrometastatic disease. She had evacuation of a hematoma of the lumpectomy site of the left breast on 12-08-24. She was seen on 12-10-24 and doing well, packing was changed on her last visit. She was seen on 01-29-25 and packing changed. She saw radiation oncology and she will start today proton therapy in [facility] She saw Dr. Brink medical oncology and he would like her to have ovarian suppression; she had one ovarian suppression shots these will be every three months She is due for a mammogram on 04-13-2024, I would do a mammogram of the right breast and not the left breast at this time as she is having radiation treatment of the left breast Lungs: Clear Heart: Regular rate and rhythm Incision: clean, packing changed; incision completely healed left breast No evidence of any lumps masses or nodules of concern in the left breast postoperative changes, no axillary adenopathy of concern right or left axilla Impression: Patient doing well postoperatively She is going to start radiation therapy today 03-18-25 /proton therapy in [place] Will follow-up with medical oncology/ovarian suppression Plan: Right breast mammogram in April and follow-up after this is done continue present care Follow-up medical oncology ovarian suppression Follow-up radiation oncology proton therapy follow up four months, she will follow-up sooner any questions or concerns CC: Zuleika Guallpa
[2025-03-18 08:56] VITALS: BP 117/90; PULSE 98; RESP 17; TEMP 97.9
== END ==
LOC: WWCWWP 08:39
PROVIDERS: ATTEND Surgery
DX: Z48.89 Encounter for other specified surgical aftercare (principal); Z98.890 Other specified postprocedural states